=== PATIENT | male | born 1960 | race Caucasian/White ===

== ENCOUNTER 2018-05-07 17:19 | Inpatient (IN) | payer BC ==
[2018-05-07] MEDS ORDERED: SODIUM CHLORIDE 0.9% 1,000 ML IV STA (17:38)
--- NOTE | 2018-05-07 17:53 | ED ---
General Adult HPI - General Chief complaint: Abdominal Pain Stated complaint: abdominal pain/bloating Time Seen by Provider: 05/07/18 17:30 Source: patient, RN notes reviewed Mode of arrival: ambulatory Limitations: no limitations - History of Present Illness Initial comments: 57-year-old male since to the emergency department for a chief complaint of right lower quadrant pain times one day. Patient states this pain started us morning. He states it is in his lower abdomen worse in the right lower quadrant. Patient states he is concerned for an appendicitis. He denies fevers or chills. He admits to some episodes of nausea but denies any vomiting. Patient has not had any abdominal surgeries besides on the left ureter when he was 13 years old. He states he had a normal bowel movement this morning as well as yesterday. He denies any dysuria. Patient has no other complaints at this time including shortness of breath, chest pain, headache, or visual changes. - Related Data Home Medications Medication Instructions Recorded Confirmed Aspirin EC [Ecotrin Low Dose] 81 mg PO DAILY 05/07/18 05/07/18 Atorvastatin [Lipitor] 20 mg PO DAILY 05/07/18 05/07/18 Fenofibrate [Lofibra] 160 mg PO DAILY 05/07/18 05/07/18 Lisinopril-Hctz 20-25 mg 2 tab PO DAILY 05/07/18 05/07/18 [Zestoretic 20-25] Metoprolol Tartrate [Lopressor] 100 mg PO DAILY 05/07/18 05/07/18 Multivitamin,Therapeutic [Thera] 1 tab PO DAILY 05/07/18 05/07/18 PARoxetine [Paxil] 20 mg PO DAILY 05/07/18 05/07/18 Potassium 99 mg PO DAILY 05/07/18 05/07/18 Saw [place] 500 mg PO DAILY 05/07/18 05/07/18 Triamcinolone Acetonide 1 applic TOPICAL TID PRN 05/07/18 05/07/18 [Triamcinolone Acetonide 0.025%] amLODIPine [Norvasc] 10 mg PO DAILY 05/07/18 05/07/18 Allergies Allergy/AdvReac Type Severity Reaction Status Date / Time adhesive AdvReac Unknown Verified 05/07/18 17:53 Review of Systems ROS Statement: Those systems with pertinent positive or pertinent negative responses have been documented in the HPI. ROS Other: All systems not noted in ROS Statement are negative. Past Medical History Past Medical History: Cancer, Hyperlipidemia, Hypertension Additional Past Medical History / Comment(s): skin cancer History of Any Multi-Drug Resistant Organisms: None Reported Additional Past Surgical History / Comment(s): ureter surgery Past Psychological History: No Psychological Hx Reported Smoking Status: Never smoker Past Alcohol Use History: Daily Past Drug Use History: None Reported General Exam Limitations: no limitations General appearance: alert, in no apparent distress Head exam: Present: atraumatic, normocephalic, normal inspection Eye exam: Present: normal appearance, PERRL, EOMI. Absent: scleral icterus, conjunctival injection, periorbital swelling ENT exam: Present: normal exam, mucous membranes moist Neck exam: Present: normal inspection, full ROM. Absent: tenderness, meningismus, lymphadenopathy Respiratory exam: Present: normal lung sounds bilaterally. Absent: respiratory distress, wheezes, rales, rhonchi, stridor Cardiovascular Exam: Present: regular rate, normal rhythm, normal heart sounds. Absent: systolic murmur, diastolic murmur, rubs, gallop, clicks GI/Abdominal exam: Present: soft, tenderness (Tenderness with guarding in the right lower quadrant, no tenderness elsewhere in the abdomen.), normal bowel sounds. Absent: distended, guarding, rebound, rigid Neurological exam: Present: alert, oriented X3, CN II-XII intact Psychiatric exam: Present: normal affect, normal mood Course Vital Signs 05/07/18 05/07/18 17:25 19:07 Temperature 98.2 F Pulse Rate 88 78 Respiratory 18 18 Rate Blood Pressure 158/90 141/82 O2 Sat by Pulse 99 100 Oximetry Medical Decision Making - Medical Decision Making 57-year-old male with a past medical history of skin cancer, hypertension, hyperlipidemia presents to the emergency department for right lower quadrant pain times one day. Denies fevers or chills. Does admit to nausea denies any vomiting. Patient refused pain medication and anti-emetics. On exam patient does have right lower quadrant tenderness, McBurney point tenderness, positive obturator sign. No rebound tenderness present. Negative Rovsing sign. Patient does have leukocytosis of 14.8 with left shift. CMP unremarkable. Creatinine slightly elevated at 1.28, given a liter of fluids. CT showed a thickened appendix with surrounding inflammatory changes related to acute appendicitis, no abscess. Dr Gonzalez spoke with Dr. Jose who accepts admission and recommends nothing by mouth after midnight. Patient will be started on Zosyn. - Lab Data Result diagrams: 05/07/18 18:22 05/07/18 18:22 Lab Results 05/07/18 05/07/18 05/07/18 Range/Units 18:22 18:22 18:45 WBC 14.8 H (3.8-10.6) k/uL RBC 4.53 (4.30-5.90) m/uL Hgb 14.5 (13.0-17.5) gm/dL Hct 42.4 (39.0-53.0) % MCV 93.5 (80.0-100.0) fL MCH 32.1 (25.0-35.0) pg MCHC 34.3 (31.0-37.0) g/dL RDW 13.4 (11.5-15.5) % Plt Count 308 (150-450) k/uL Neutrophils % 84 % Lymphocytes % 9 % Monocytes % 5 % Eosinophils % 1 % Basophils % 0 % Neutrophils # 12.5 H (1.3-7.7) k/uL Lymphocytes # 1.3 (1.0-4.8) k/uL Monocytes # 0.8 (0-1.0) k/uL Eosinophils # 0.1 (0-0.7) k/uL Basophils # 0.0 (0-0.2) k/uL Sodium 136 L (137-145) mmol/L Potassium 3.5 (3.5-5.1) mmol/L Chloride 98 (98-107) mmol/L Carbon Dioxide 24 (22-30) mmol/L Anion Gap 14 mmol/L BUN 20 (9-20) mg/dL Creatinine 1.28 H (0.66-1.25) mg/dL Est GFR (CKD-EPI)AfAm 70 (>60 ml/min/1.73 sqM) Est GFR (CKD-EPI)NonAf 61 (>60 ml/min/1.73 sqM) Glucose 133 H (74-99) mg/dL Calcium 10.0 (8.4-10.2) mg/dL Total Bilirubin 1.1 (0.2-1.3) mg/dL AST 38 (17-59) U/L ALT 38 (21-72) U/L Alkaline Phosphatase 34 L (38-126) U/L Total Protein 7.6 (6.3-8.2) g/dL Albumin 5.0 (3.5-5.0) g/dL Amylase 59 (30-110) U/L Lipase 162 (23-300) U/L Urine Color Yellow Urine Appearance Clear (Clear) Urine pH 6.5 (5.0-8.0) Ur Specific [place] 1.021 (1.001-1.035) Urine Protein Trace H (Negative) Urine Glucose (UA) Negative (Negative) Urine Ketones Trace H (Negative) Urine Blood Negative (Negative) Urine Nitrite Negative (Negative) Urine Bilirubin Negative (Negative) Urine Urobilinogen <2.0 (<2.0) mg/dL Ur Leukocyte Esterase Negative (Negative) Disposition Clinical Impression: Appendicitis, acute Disposition: ADMITTED IP TO THIS [facility] Condition: Good Referrals: Domingo Ward DO [Primary Care Provider] - 1-2 days Time of Disposition: 19:33
[2018-05-07 18:46] LABS: Basophils % (A) 0 %; Eosinophils # (A) 0.1 k/uL (0-0.7); Eosinophils % (A) 1 %; HCT 42.4 % (39.0-53.0); HGB 14.5 gm/dL (13.0-17.5); Lymphocytes # (A) 1.3 k/uL (1.0-4.8); Lymphocytes % (A) 9 %; MCH 32.1 pg (25.0-35.0); MCHC 34.3 g/dL (31.0-37.0); MCV 93.5 fL (80.0-100.0); Mean Platelet Volume 6.9; Monocytes # (A) 0.8 k/uL (0-1.0); Monocytes % (A) 5 %; Neutrophils # (A) 12.5 k/uL (1.3-7.7); Neutrophils % (A) 84 %; Platelet Count 308 k/uL (150-450); RBC 4.53 m/uL (4.30-5.90); RDW 13.4 % (11.5-15.5); WBC 14.8 k/uL (3.8-10.6)
[2018-05-07 18:56] LABS: Appearance,Urine Clear (Clear); Bilirubin,Urine Negative (Negative); Blood,Urine Negative (Negative); Color,Urine Yellow; Glucose,Urine (UA) Negative (Negative); Ketones,Urine Trace (Negative); Leukocyte Esterase,Urine Negative (Negative); Nitrite,Urine Negative (Negative); PH, Urine 6.5 (5.0-8.0); Protein,Urine Trace (Negative); Specific Gravity,Urine 1.021 (1.001-1.035); Urobilinogen,Urine <2.0 mg/dL (<2.0)
[2018-05-07 18:57] LABS: Potassium 3.5 mmol/L (3.5-5.1); Total Bilirubin 1.1 mg/dL (0.2-1.3); Total Protein 7.6 g/dL (6.3-8.2)
--- NOTE | 2018-05-07 19:10 | CT ---
EXAMINATION TYPE: CT abdomen pelvis w con DATE OF EXAM: 05/07/2018 COMPARISON: None HISTORY: Lower abdominal pain and nausea today. CT DLP: 1435.7 mGycm Automated exposure control for dose reduction was used. TECHNIQUE: Helical acquisition of images was performed from the lung bases through the pelvis. CONTRAST: Performed without Oral Contrast and with IV Contrast, patient injected with 100ml mL of Isovue 300. FINDINGS: Lung bases are clear. There is no pleural effusion. Heart size is normal. There is no pericardial eff usion. Liver spleen pancreas gallbladder appear normal. Bile ducts are not dilated. Stomach appears normal. There is no adrenal mass. Kidneys show satisfactory contrast opacification. There is no hydronephrosis. Ureters are not dilated . There is no retroperitoneal adenopathy. Bladder distends smoothly. There is no free fluid in the pelvis. There is fat stranding around the appendix which is mildly dilated. Appendix measures up to 12 mm. Th ere are colonic diverticula without evidence of diverticulitis. There is no evidence of free air. There is no ascites. I see no bony destructive process. Lumbar spine is intact. IMPRESSION: THICKENED APPENDIX WITH SURROUNDING INFLAMMATORY CHANGES RELATED TO ACUTE APPENDICITIS. NO ABSCESS.
[2018-05-07] MEDS ORDERED: ONDANSETRON 4 MG/2 ML VIAL IVP PRN (19:26)
[2018-05-07] MEDS ORDERED: NALOXONE 0.4 MG/ML 1 ML VIAL IV PRN (19:26)
[2018-05-07] MEDS: MORPHINE SULFATE 4 MG/ML SYRINGE IV PRN (20:28)
[2018-05-07 21:44] VITALS: BMI 33.5
[2018-05-07] MEDS: PIPERACILLIN-TAZOBACTAM 3.375 GM in SODIUM CHLORIDE 0.9% 100 ML IVPB SCH (21:53)
[2018-05-07] MEDS: SODIUM CHLORIDE 0.9% 1,000 ML IV SCH (21:54)
[2018-05-07] MEDS ORDERED: Potassium Replacement Protocol 1 EACH MISC MISCELLANE PRN (22:17)
[2018-05-07] MEDS: ACETAMINOPHEN TAB 325 MG TAB PO PRN (22:42)
[2018-05-07] MEDS: POTASSIUM CHLORIDE ER 20 MEQ TAB.ER PO SCH ×2 (22:42→23:56)
[2018-05-08] MEDS: MORPHINE SULFATE 4 MG/ML SYRINGE IV PRN (03:12)
[2018-05-08] MEDS: PIPERACILLIN-TAZOBACTAM 3.375 GM in SODIUM CHLORIDE 0.9% 100 ML IVPB SCH ×3 (04:00→21:23)
[2018-05-08] MEDS: SODIUM CHLORIDE 0.9% 1,000 ML IV SCH ×2 (04:14→21:00)
[2018-05-08] MEDS: ACETAMINOPHEN TAB 325 MG TAB PO PRN ×2 (06:06→22:36)
[2018-05-08] MEDS: LACTATED RINGERS 1,000 ML IV SCH (06:08)
[2018-05-08] MEDS ORDERED: METOPROLOL TARTRATE 50 MG TAB PO SCH (09:00)
[2018-05-08] MEDS ORDERED: KETOROLAC 30 MG/ML 1 ML VIAL IVP SCH ×2 (10:00→12:15)
[2018-05-08] MEDS ORDERED: IV FLUID CONTINUATION 800 ML IV ONE (10:10)
--- NOTE | 2018-05-08 11:12 | P.GSHP ---
History of Present Illness H&P Date: 05/08/18 Chief Complaint: Right lower quadrant pain This is a 57-year-old male who was admitted through emergency room complaints of right lower quadrant pain. Patient's workup found evidence appendicitis. He 's been admitted for laparoscopic appendectomy. Past Medical History Past Medical History: Cancer, Hyperlipidemia, Hypertension Additional Past Medical History / Comment(s): skin cancer History of Any Multi-Drug Resistant Organisms: None Reported Additional Past Surgical History / Comment(s): ureter surgery Past Anesthesia/Blood Transfusion Reactions: No Reported Reaction Past Psychological History: No Psychological Hx Reported Smoking Status: Never smoker Past Alcohol Use History: Daily Past Drug Use History: None Reported - Past Family History Brother(s) Family Medical History: Myocardial Infarction ([place]) Father Family Medical History: Cancer Medications and Allergies Home Medications Medication Instructions Recorded Confirmed Type Aspirin EC [Ecotrin Low Dose] 81 mg PO DAILY 05/07/18 05/07/18 History Atorvastatin [Lipitor] 20 mg PO DAILY 05/07/18 05/07/18 History Fenofibrate [Lofibra] 160 mg PO DAILY 05/07/18 05/07/18 History Lisinopril-Hctz 20-25 mg 2 tab PO DAILY 05/07/18 05/07/18 History [Zestoretic 20-25] Metoprolol Tartrate [Lopressor] 100 mg PO DAILY 05/07/18 05/07/18 History Multivitamin,Therapeutic [Thera] 1 tab PO DAILY 05/07/18 05/07/18 History PARoxetine [Paxil] 20 mg PO DAILY 05/07/18 05/07/18 History Potassium 99 mg PO DAILY 05/07/18 05/07/18 History Saw [place] 500 mg PO DAILY 05/07/18 05/07/18 History Triamcinolone Acetonide 1 applic TOPICAL TID PRN 05/07/18 05/07/18 History [Triamcinolone Acetonide 0.025%] amLODIPine [Norvasc] 10 mg PO DAILY 05/07/18 05/07/18 History Allergies Allergy/AdvReac Type Severity Reaction Status Date / Time Latex, Natural Rubber Allergy Itching Verified 05/08/18 10:36 adhesive AdvReac Unknown Verified 05/07/18 17:53 Surgical - Exam Vital Signs Temp Pulse Resp BP Pulse Ox 98.2 F 88 18 158/90 99 01/06/19 17:25 05/07/18 17:25 05/07/18 17:25 05/07/18 17:25 05/07/18 17:25 - General well developed, no distress - Eyes PERRL - ENT normal pinna - Neck no masses - Respiratory normal expansion - Cardiovascular Rhythm: regular - Abdomen Mild right lower quadrant tenderness Abdomen: soft Results - Labs 05/07/18 18:22 05/07/18 18:22 Abnormal Lab Results - Last 24 Hours (Table) 05/07/18 05/07/18 05/07/18 Range/Units 18:22 18:22 18:45 WBC 14.8 H (3.8-10.6) k/uL Neutrophils # 12.5 H (1.3-7.7) k/uL Sodium 136 L (137-145) mmol/L Creatinine 1.28 H (0.66-1.25) mg/dL Glucose 133 H (74-99) mg/dL Alkaline Phosphatase 34 L (38-126) U/L Urine Protein Trace H (Negative) Urine Ketones Trace H (Negative) Diabetes panel 05/07/18 Range/Units 18:22 Sodium 136 L (137-145) mmol/L Potassium 3.5 (3.5-5.1) mmol/L Chloride 98 (98-107) mmol/L Carbon Dioxide 24 (22-30) mmol/L BUN 20 (9-20) mg/dL Creatinine 1.28 H (0.66-1.25) mg/dL Glucose 133 H (74-99) mg/dL Calcium 10.0 (8.4-10.2) mg/dL AST 38 (17-59) U/L ALT 38 (21-72) U/L Alkaline Phosphatase 34 L (38-126) U/L Total Protein 7.6 (6.3-8.2) g/dL Albumin 5.0 (3.5-5.0) g/dL Calcium panel 05/07/18 Range/Units 18:22 Calcium 10.0 (8.4-10.2) mg/dL Albumin 5.0 (3.5-5.0) g/dL Pituitary panel 05/07/18 Range/Units 18:22 Sodium 136 L (137-145) mmol/L Potassium 3.5 (3.5-5.1) mmol/L Chloride 98 (98-107) mmol/L Carbon Dioxide 24 (22-30) mmol/L BUN 20 (9-20) mg/dL Creatinine 1.28 H (0.66-1.25) mg/dL Glucose 133 H (74-99) mg/dL Calcium 10.0 (8.4-10.2) mg/dL Adrenal panel 05/07/18 Range/Units 18:22 Sodium 136 L (137-145) mmol/L Potassium 3.5 (3.5-5.1) mmol/L Chloride 98 (98-107) mmol/L Carbon Dioxide 24 (22-30) mmol/L BUN 20 (9-20) mg/dL Creatinine 1.28 H (0.66-1.25) mg/dL Glucose 133 H (74-99) mg/dL Calcium 10.0 (8.4-10.2) mg/dL Total Bilirubin 1.1 (0.2-1.3) mg/dL AST 38 (17-59) U/L ALT 38 (21-72) U/L Alkaline Phosphatase 34 L (38-126) U/L Total Protein 7.6 (6.3-8.2) g/dL Albumin 5.0 (3.5-5.0) g/dL - Imaging CT scan - abdomen: report reviewed (Thickening appendix suggestive of acute appendicitis) Assessment and Plan Assessment: Hematemesis. We'll perform laparoscopic appendectomy.
[2018-05-08] MEDS ORDERED: LIDOCAINE 1% INJ 10MG/ML (20 ML MDV) ONE (11:19)
[2018-05-08] MEDS ORDERED: fentaNYL (PF) 50 MCG/ML 2 ML AMP ONE (11:19)
[2018-05-08] MEDS ORDERED: MIDAZOLAM 2 MG/2 ML VIAL ONE (11:19)
[2018-05-08] MEDS ORDERED: ROCURONIUM BROMIDE 10 MG/ML 10 ML VIAL IV ONE (11:19)
[2018-05-08] MEDS ORDERED: NEOSTIGMINE 1 MG/ML 10 ML VIAL ONE (11:19)
[2018-05-08] MEDS ORDERED: PROPOFOL 10 MG/ML 20 ML VIAL IV ONE (11:19)
[2018-05-08] MEDS ORDERED: GLYCOPYRROLATE 0.2 MG/ML 2 ML VIAL ONE (11:19)
[2018-05-08] MEDS ORDERED: ePHEDrine SULFATE/0.9% NACL/PF 50 MG/5 ML SYRINGE IV ONE (11:19)
[2018-05-08] MEDS ORDERED: BUPIVACAIN-EPI 0.25%-1:200,000 30 ML VIAL SQ ONE (11:42)
[2018-05-08] MEDS ORDERED: HYDROcodone/APAP 5-325MG 1 EACH TAB PO PRN (12:04)
[2018-05-08] MEDS ORDERED: NALOXONE 0.4 MG/ML 1 ML VIAL IV PRN (12:04)
[2018-05-08] MEDS ORDERED: METOCLOPRAMIDE 5 MG/ML 2 ML VIAL IVP PRN (12:04)
[2018-05-08] MEDS ORDERED: LACTATED RINGERS 1,000 ML IV ONE (12:04)
[2018-05-08] MEDS ORDERED: traMADol 50 MG TAB PO PRN (12:04)
--- NOTE | 2018-05-08 12:04 | P.OP ---
Date of Procedure: 05/08/18 Preoperative Diagnosis: Acute appendicitis Postoperative Diagnosis: Acute appendicitis Procedure(s) Performed: Laparoscopic appendectomy Anesthesia: ANGEL Surgeon: Kurt Jose Estimated Blood Loss (ml): 5 Pathology: other (Appendix) Condition: stable Disposition: PACU Description of Procedure: The patient's placed on the operating table in the supine position. The patient received general anesthesia. The abdomen was prepped and draped in the usual sterile fashion. The skin was anesthetized 1% local Xylocaine at the trocar sites. Using an 11 blade the skin was incised at the umbilicus. The umbilicus was grasped with a [place] clamp and then a Veress needle was placed into the peritoneal cavity. Position of the Veress needle was confirmed with positive drop test. After adequate insufflation a 5 mm trocar was placed into the peritoneal cavity. The abdomen was further insufflated. And then the laparoscope was placed in the peritoneal cavity. Next a 5 mm trocar was placed in the midline suprapubic position. And then a 10 mm trocar was placed in the midline epigastric position. The patient was rotated with the right side up and in Trendelenburg. The appendix was visualized. The appendix appeared to be inflamed and dilated.. The appendix was grasped and then using the Harmonic scissors the mesoappendix was divided. A PDS Endoloop was then placed around the base of the appendix. And then the appendix was divided using Harmonic scissors. The appendix was placed into an Endo Catch and brought out through the 10 mm trocar site. The abdomen was irrigated. There is no bleeding seen. The trochars withdrawn. The skin was closed interrupted 3-0 Monocryl suture. Dermabond dressing was applied. Patient was sent to recovery room in stable condition.
[2018-05-08] MEDS ORDERED: SODIUM CHLORIDE 0.9% 1,000 ML IV ONE ×2 (12:32)
[2018-05-08] MEDS: ASPIRIN 81 MG PO SCH (12:48)
[2018-05-08] MEDS: FENOFIBRATE 160 MG TAB PO SCH (12:49)
[2018-05-08] MEDS: PARoxetine 20 MG TAB PO SCH (12:49)
[2018-05-08] MEDS: MULTIVITAMINS, THERA 1 EACH TAB PO SCH (12:49)
[2018-05-08] MEDS: ATORVASTATIN 20 MG TAB PO SCH (12:49)
--- NOTE | 2018-05-08 17:28 | P.CONS ---
History of Present Illness - Reason for Consult Possible acute renal failure - History of Present Illness Patient came in with the right lower quadrant abdominal pain and was found to have appendicitis patient was taken to our tenderness postoperatively after the appendectomy for acute appendicitis patient. Patient is presently on Zosyn. Patient does have history of hypertension patient denied any previous history of acute renal failure patient's creatinine is 1.28 patient on IV fluids with repeat basic metabolic profile tomorrow. Patient has good urine output patient the blood pressure is low normal at this time which is expected in perioperative. Patient takes lisinopril and amlodipine at home Zuri lisinopril will be held and if his blood pressure is okay patient will restart back on low- dose of amlodipine tomorrow morning patient also takes Lopressor at home. Denied any fever chills. Patient does have leukocytosis presently denied any nausea vomiting. Review of Systems REVIEW OF SYSTEMS: CONSTITUTIONAL: No fever, no malaise, no fatigue. HEENT: No recent visual problems or hearing problems. Denied any sore throat. CARDIOVASCULAR: No chest pain, orthopnea, PND, no palpitations, no syncope. PULMONARY: No shortness of breath, no cough, no hemoptysis. GASTROINTESTINAL: No diarrhea, no nausea, no vomiting, NEUROLOGICAL: No headaches, no weakness, no numbness. HEMATOLOGICAL: Denies any bleeding or petechiae. GENITOURINARY: Denies any burning micturition, frequency, or urgency. MUSCULOSKELETAL/RHEUMATOLOGICAL: Denies any joint pain, swelling, or any muscle pain. ENDOCRINE: Denies any polyuria or polydipsia. The rest of the 14-point review of systems is negative. Past Medical History Past Medical History: Cancer, Hyperlipidemia, Hypertension Additional Past Medical History / Comment(s): skin cancer History of Any Multi-Drug Resistant Organisms: None Reported Additional Past Surgical History / Comment(s): ureter surgery Past Anesthesia/Blood Transfusion Reactions: No Reported Reaction Past Psychological History: No Psychological Hx Reported Smoking Status: Never smoker Past Alcohol Use History: Daily Past Drug Use History: None Reported - Past Family History Brother(s) Family Medical History: Myocardial Infarction ([place]) Father Family Medical History: Cancer Medications and Allergies Home Medications Medication Instructions Recorded Confirmed Type Aspirin EC [Ecotrin Low Dose] 81 mg PO DAILY 05/07/18 05/07/18 History Atorvastatin [Lipitor] 20 mg PO DAILY 05/07/18 05/07/18 History Fenofibrate [Lofibra] 160 mg PO DAILY 05/07/18 05/07/18 History Lisinopril-Hctz 20-25 mg 2 tab PO DAILY 05/07/18 05/07/18 History [Zestoretic 20-25] Metoprolol Tartrate [Lopressor] 100 mg PO DAILY 05/07/18 05/07/18 History Multivitamin,Therapeutic [Thera] 1 tab PO DAILY 05/07/18 05/07/18 History PARoxetine [Paxil] 20 mg PO DAILY 05/07/18 05/07/18 History Potassium 99 mg PO DAILY 05/07/18 05/07/18 History Saw [place] 500 mg PO DAILY 05/07/18 05/07/18 History Triamcinolone Acetonide 1 applic TOPICAL TID PRN 05/07/18 05/07/18 History [Triamcinolone Acetonide 0.025%] amLODIPine [Norvasc] 10 mg PO DAILY 05/07/18 05/07/18 History Allergies Allergy/AdvReac Type Severity Reaction Status Date / Time Latex, Natural Rubber Allergy Itching Verified 05/08/18 10:36 adhesive AdvReac Unknown Verified 05/07/18 17:53 Physical Exam Vitals: Vital Signs Temp Pulse Pulse Pulse Resp BP BP 05/08/18 15:45 78 16 124/72 05/08/18 15:30 81 16 131/79 05/08/18 15:15 82 16 133/81 05/08/18 15:00 82 16 135/72 05/08/18 14:45 79 16 132/77 05/08/18 14:30 71 16 132/83 05/08/18 14:15 71 16 131/80 05/08/18 14:00 76 16 112/73 05/08/18 13:45 98.2 F 67 16 104/65 05/08/18 13:05 73 16 106/58 05/08/18 12:50 72 16 105/62 05/08/18 12:35 75 18 115/70 05/08/18 12:20 74 16 120/68 05/08/18 12:07 97.0 F L 89 16 115/67 05/08/18 10:33 98.7 F 87 109/61 05/08/18 07:51 99.2 F 88 14 108/70 05/08/18 07:32 103 H 05/08/18 07:00 98.4 F 88 16 126/77 05/08/18 06:32 99 126/77 05/08/18 06:03 107 H 174/99 05/08/18 06:02 99.3 F 109 H 18 184/89 05/08/18 00:34 98.7 F 83 16 109/64 05/07/18 22:12 99.3 F 05/07/18 21:30 100.7 F H 78 92 18 143/79 168/83 05/07/18 20:00 77 20 163/86 05/07/18 19:07 78 18 141/82 05/07/18 17:25 98.2 F 88 18 158/90 Pulse Ox 05/08/18 15:45 94 L 05/08/18 15:30 95 05/08/18 15:15 96 05/08/18 15:00 95 05/08/18 14:45 97 05/08/18 14:30 96 05/08/18 14:15 97 05/08/18 14:00 95 05/08/18 13:45 94 L 05/08/18 13:05 95 05/08/18 12:50 94 L 05/08/18 12:35 95 05/08/18 12:20 96 05/08/18 12:07 90 L 05/08/18 10:33 95 05/08/18 07:51 96 05/08/18 07:32 05/08/18 07:00 98 05/08/18 06:32 98 05/08/18 06:03 95 05/08/18 06:02 95 05/08/18 00:34 94 L 05/07/18 22:12 05/07/18 21:30 97 05/07/18 20:00 97 05/07/18 19:07 100 05/07/18 17:25 99 Intake and Output 05/08/18 05/08/18 05/08/18 06:59 14:59 22:59 Intake Total 1500 900 500 Output Total 500 5 Balance 1000 895 500 Intake: IV 900 Intake, IV Titration 1200 Amount Sodium Chloride 0.9% 1, 1200 000 ml @ 120 mls/hr IV . Q8H20M [facility] Rx#:[id number] Oral 300 500 Output: Stool 500 Estimated Blood Loss 5 Other: # Voids 1 PHYSICAL EXAMINATION: GENERAL: The patient is alert and oriented x3, not in any acute distress. Obese HEENT: Pupils are round and equally reacting to light. EOMI. No scleral icterus. No conjunctival pallor. Normocephalic, atraumatic. No pharyngeal erythema. No thyromegaly. CARDIOVASCULAR: S1 and S2 present. No murmurs, rubs, or gallops. PULMONARY: Chest is clear to auscultation, no wheezing or crackles. ABDOMEN: Surgical site area clean sluggish bowel sounds MUSCULOSKELETAL: No joint swelling or deformity. EXTREMITIES: No cyanosis, clubbing, or pedal edema. NEUROLOGICAL: Gross neurological examination did not reveal any focal deficits. SKIN: No rashes. Results CBC & Chem 7: 05/07/18 18:22 05/07/18 18:22 Labs: Abnormal Lab Results - Last 24 Hours (Table) 05/07/18 05/07/18 05/07/18 Range/Units 18:22 18:22 18:45 WBC 14.8 H (3.8-10.6) k/uL Neutrophils # 12.5 H (1.3-7.7) k/uL Sodium 136 L (137-145) mmol/L Creatinine 1.28 H (0.66-1.25) mg/dL Glucose 133 H (74-99) mg/dL Alkaline Phosphatase 34 L (38-126) U/L Urine Protein Trace H (Negative) Urine Ketones Trace H (Negative) Assessment and Plan Plan: -Acute appendicitis: Patient is status post appendectomy continue Zosyn IV fluids -Hypertension beta matthew will be continued hold off on amlodipine and lisinopril temporarily to prevent perioperative hypotension and also acute renal failure -Possible acute renal failure prerenal azotemia from acute appendicitis continue with IV fluids repeat basic metabolic profile tomorrow -Leukocytosis secondary to acute appendicitis -Depression resume his home medication -Hyperlipidemia -DVT prophylaxis and pain management as per primary service
[2018-05-08 19:39] LABS: Albumin 3.7 g/dL (3.5-5.0); Calcium 8.2 mg/dL (8.4-10.2); Potassium 3.2 mmol/L (3.5-5.1); Total Protein 5.8 g/dL (6.3-8.2)
[2018-05-08] MEDS ORDERED: amLODIPine 10 MG TAB PO SCH (21:00)
[2018-05-08] MEDS ORDERED: LISINOPRIL-HCTZ 20-25 MG 1 EACH TAB PO SCH (21:00)
[2018-05-08] MEDS: DOCUSATE 100 MG CAP PO SCH (21:10)
[2018-05-08] MEDS: METOPROLOL TARTRATE 50 MG TAB PO SCH (21:24)
[2018-05-08] MEDS: KETOROLAC 30 MG/ML 1 ML VIAL IVP SCH (22:36)
[2018-05-09] MEDS: SODIUM CHLORIDE 0.9% 1,000 ML IV SCH ×3 (02:06→16:56)
--- NOTE | 2018-05-09 03:59 | CONS ---
CONSULTATION DATE OF SERVICE: 05/08/2018 REASON FOR CONSULTATION: Acute appendicitis and antibiotic recommendation. HISTORY OF PRESENT ILLNESS: The patient is a 57-year-old male who started having abdominal pain yesterday morning. The patient's pain initially in the periumbilical area subsequently radiated to the right lower quadrant. The patient progressively get worse over the next 24 hours with intensity almost 10/10 and has been getting more sharp in nature with associated nausea but no vomiting. Denies having any constipation. He did have some chills. With these symptoms, the patient has been evaluated by the ER physician. On arrival to the ER, the patient did have a low-grade fever of 100.7. The patient did have elevated white count 14.8. A CT abdomen and pelvis has been suggestive of appendicitis. The patient was taken to the OR today and is status post laparoscopic appendectomy. Infectious Disease was consulted for further recommendation regarding antibiotic therapy. The patient did have a postop abdominal pain that seemed to have slightly improved from initial abdominal pain that he has slight nausea, no vomiting. Denies having any chest pain or shortness of breath. No cough and no diarrhea. REVIEW OF SYSTEMS: Positive points have been mentioned in HPI. Rest of the systems have been negative. MEDICAL HISTORY: History of hypertension, hyperlipidemia, skin cancer. SURGICAL HISTORY: Previous surgeries. SOCIAL HISTORY: Denies smoking, drink daily and no drug use. FAMILY HISTORY: No pertinent findings noticed. ALLERGIES: LATEX. MEDICATION: Medications include the patient is currently on Tylenol, [place], aspirin, Lipitor, Colace, Lovenox, Toradol, lactated Ringer's, Lopressor, multivitamin, Narcan, Zosyn 3.375 q.8 hours and Ultram. PHYSICAL EXAMINATION: Blood pressure 124/72 with a pulse of 73, temperature 98, T-max 100.7. He is 94% on room air. General description is a middle-aged male lying in bed in no distress. No tachypnea or accessory muscle of respiration use. HEENT: Shows no pallor or scleral icterus. Oral mucosa membranes are dry. No pharyngeal erythema or thrush. Neck: Trachea central. No thyromegaly. Lungs unlabored breathing. Clear to auscultation anteriorly. No wheeze or crackles. Heart S1, S2. Regular rate and rhythm. ABDOMEN: Soft, mild tenderness. No guarding or rigidity. No organomegaly. Extremities: No edema of the feet. Skin examination: No rash or mass palpable. Neurological: Patient is awake, alert, oriented times three. Mood and affect normal. LABS: BUN of 13, creatinine 1.42, hemoglobin 14.5, white count 14.8. CT report as mentioned above. DIAGNOSTIC IMPRESSION AND PLAN: Patient admitted to the hospital with sepsis. The patient did have fever of 100.7. The patient did have elevated white count at 14.8, meeting criteria for SIRS source is likely acute appendicitis with no evidence of any perforation. The patient has not been on antibiotic in the recent past, could be sensitive pathogen such as E coli and herrera. PLAN: 1. Zosyn 3.375 q8 hours. 2. IV fluids. 3. If the patient continues to improve, we should be able to switch him to oral antibiotic and close outpatient followup. Thank you for this consultation. We will follow this patient along with you. MMODL / IJN: [id number] /
[2018-05-09] MEDS: KETOROLAC 30 MG/ML 1 ML VIAL IVP SCH ×3 (05:05→16:56)
[2018-05-09] MEDS: PIPERACILLIN-TAZOBACTAM 3.375 GM in SODIUM CHLORIDE 0.9% 100 ML IVPB SCH ×3 (05:05→21:12)
[2018-05-09] MEDS: LACTATED RINGERS 1,000 ML IV SCH (05:32)
[2018-05-09] MEDS: PARoxetine 20 MG TAB PO SCH (08:27)
[2018-05-09] MEDS: FENOFIBRATE 160 MG TAB PO SCH (08:27)
[2018-05-09] MEDS: DOCUSATE 100 MG CAP PO SCH ×2 (08:27→21:12)
[2018-05-09] MEDS: ATORVASTATIN 20 MG TAB PO SCH (08:28)
[2018-05-09] MEDS: ASPIRIN 81 MG PO SCH (08:28)
[2018-05-09] MEDS: METOPROLOL TARTRATE 50 MG TAB PO SCH ×2 (08:28→21:12)
[2018-05-09] MEDS: ENOXAPARIN 40 MG/0.4 ML SYRINGE SQ SCH (08:29)
[2018-05-09] MEDS ORDERED: amLODIPine 5 MG TAB PO SCH (09:00)
[2018-05-09 09:18] LABS: Basophils % (A) 0 %; Eosinophils # (A) 0.1 k/uL (0-0.7); Eosinophils % (A) 1 %; HCT 34.7 % (39.0-53.0); HGB 11.8 gm/dL (13.0-17.5); Lymphocytes # (A) 1.6 k/uL (1.0-4.8); Lymphocytes % (A) 20 %; MCH 32.8 pg (25.0-35.0); MCV 96.7 fL (80.0-100.0); Mean Platelet Volume 6.9; Monocytes # (A) 0.4 k/uL (0-1.0); Monocytes % (A) 5 %; Neutrophils # (A) 5.7 k/uL (1.3-7.7); Neutrophils % (A) 71 %; Platelet Count 214 k/uL (150-450); RBC 3.59 m/uL (4.30-5.90)
[2018-05-09] MEDS: MULTIVITAMINS, THERA 1 EACH TAB PO SCH (11:04)
--- NOTE | 2018-05-09 13:51 | P.PN ---
Subjective Progress Note Date: 05/09/18 57-year-old male who underwent laparoscopic appendectomy on 2018. The patient was evaluated postoperatively. He is sitting up in the chair. Tolerating liquid diet. Denies BM. Reports passing a lot of flatus. He did spike a temp overnight. PHYSICAL EXAM: GENERAL: This is a 57-year-old male in no apparent distress at the time of examination. Pleasant and cooperative. HEENT: Head is atraumatic, normocephalic. Sclerae anicteric. Conjunctivae are clear. Mucus membranes of the mouth are moist. Neck is supple. RESPIRATORY: Clear to auscultation. No wheezes, rales, or rhonchi. No use of accessory muscles. Patient maintaining oxygen saturation greater than 92%. CARDIOVASCULAR: Regular rate and rhythm. S1 and S2 noted. No systolic or diastolic murmur auscultated. No JVD noted. No S3 or S4 noted. GASTROINTESTINAL: Surgical sites clean without signs of infection. No distention noted. Abdomen soft and round. Normal active bowel sounds auscultated x 4 quadrants. INTEGUMENTARY: No cyanosis. No jaundice. No rashes noted. No cellulitis noted. EXTREMITIES: 2+ peripheral pulses. No evidence of peripheral edema. NEUROLOGIC: Cranial nerves II-XII intact. PSYCHIATRIC: Awake, alert, and oriented X 3. Appropriate affect. ASSESSMENT: Acute appendicitis, status post laparoscopic appendectomy, POD #1 Leukocytosis History of hypertension History of hyperlipidemia Depression Obesity, BMI 33.5 PLAN: Advance diet. Incentive spirometry. Pain control. Continue antibiotics. Dr. Arreola would like patient to stay overnight for further IV antibiotics. Patient will be discharged home in the morning if he remains stable. Nurse practitioner note has been reviewed by physician. Signing provider agrees with the documented findings, assessment, and plan of care. Objective - Vital Signs Vital signs: Vital Signs Temp 98.5 F 05/09/18 08:33 Pulse 66 05/09/18 08:33 Resp 15 05/09/18 08:33 BP 112/60 05/09/18 08:33 Pulse Ox 96 05/09/18 08:33 Intake & Output 05/08/18 05/09/18 05/09/18 18:59 06:59 18:59 Intake Total 1400 2460 Output Total 5 300 Balance 1395 2160 Intake: IV 900 Intake, IV Titration 1500 Amount Lactated Ringers 1,000 ml 1500 @ 125 mls/hr IV .Q8H ONE Rx#:[id number] Oral 500 960 Output: Urine 300 Estimated Blood Loss 5 - Labs CBC & Chem 7: 05/09/18 08:22 05/09/18 08:22 Labs: Abnormal Lab Results - Last 24 Hours (Table) 05/08/18 05/09/18 Range/Units 19:12 08:22 RBC 3.59 L (4.30-5.90) m/uL Hgb 11.8 L (13.0-17.5) gm/dL Hct 34.7 L (39.0-53.0) % Sodium 133 L (137-145) mmol/L Potassium 3.2 L (3.5-5.1) mmol/L Creatinine 1.42 H (0.66-1.25) mg/dL Glucose 172 H (74-99) mg/dL Calcium 8.2 L (8.4-10.2) mg/dL Alkaline Phosphatase 27 L (38-126) U/L Total Protein 5.8 L (6.3-8.2) g/dL Microbiology - Last 24 Hours (Table) 05/07/18 20:27 Blood Culture - Preliminary Blood No Growth after 24 hours
--- NOTE | 2018-05-09 17:01 | P.PN ---
Subjective Patient is post appendectomy and clinically doing well did the pass gas did not move his bowel yet. Constitutional: Denied any fatigue denied any fever. Cardio vascular: denied any chest pain, palpitations Gastrointestinal denied any nausea vomiting Pulmonary: Denied any shortness of breath cough Neurologic denied any new focal deficits All inpatient medications were reviewed and appropriate changes in these medications as dictated in the interval history and assessment and plan. Objective - Vital Signs Vital signs: Vital Signs Temp 98.4 F 05/09/18 14:32 Pulse 65 05/09/18 14:32 Resp 16 05/09/18 14:32 BP 101/61 05/09/18 14:32 Pulse Ox 94 L 05/09/18 14:32 Intake & Output 05/08/18 05/09/18 05/09/18 18:59 06:59 18:59 Intake Total 1400 2460 Output Total 5 300 Balance 1395 2160 Intake: IV 900 Intake, IV Titration 1500 Amount Lactated Ringers 1,000 ml 1500 @ 125 mls/hr IV .Q8H ONE Rx#:[id number] Oral 500 960 Output: Urine 300 Estimated Blood Loss 5 - Exam PHYSICAL EXAMINATION: GENERAL: The patient is alert and oriented x3, not in any acute distress. Obese HEENT: Pupils are round and equally reacting to light. EOMI. No scleral icterus. No conjunctival pallor. Normocephalic, atraumatic. No pharyngeal erythema. No thyromegaly. CARDIOVASCULAR: S1 and S2 present. No murmurs, rubs, or gallops. PULMONARY: Chest is clear to auscultation, no wheezing or crackles. ABDOMEN: Surgical site area clean, good bowel sounds MUSCULOSKELETAL: No joint swelling or deformity. EXTREMITIES: No cyanosis, clubbing, or pedal edema. NEUROLOGICAL: Gross neurological examination did not reveal any focal deficits. SKIN: No rashes. - Labs CBC & Chem 7: 05/09/18 08:22 05/09/18 08:22 Labs: Abnormal Lab Results - Last 24 Hours (Table) 05/08/18 05/09/18 Range/Units 19:12 08:22 RBC 3.59 L (4.30-5.90) m/uL Hgb 11.8 L (13.0-17.5) gm/dL Hct 34.7 L (39.0-53.0) % Sodium 133 L (137-145) mmol/L Potassium 3.2 L (3.5-5.1) mmol/L Creatinine 1.42 H (0.66-1.25) mg/dL Glucose 172 H (74-99) mg/dL Calcium 8.2 L (8.4-10.2) mg/dL Alkaline Phosphatase 27 L (38-126) U/L Total Protein 5.8 L (6.3-8.2) g/dL Microbiology - Last 24 Hours (Table) 05/07/18 20:27 Blood Culture - Preliminary Blood No Growth after 24 hours Assessment and Plan Plan: -Acute appendicitis: Patient is status post appendectomy continue Zosyn IV fluids -Hypertension beta matthew will be continued hold off on amlodipine and lisinopril temporarily to prevent perioperative hypotension and also acute renal failure -Possible acute renal failure prerenal azotemia from acute appendicitis continue with IV fluids repeat basic metabolic profile tomorrow -Leukocytosis secondary to acute appendicitis -Depression resume his home medication -Hyperlipidemia -DVT prophylaxis and pain management as per primary service
--- NOTE | 2018-05-10 03:13 | PN ---
PROGRESS NOTE DATE OF SERVICE: 05/09/2018 REASON FOR FOLLOWUP: Acute appendicitis and postoperative fever. INTERVAL HISTORY: The patient did spike a fever of 102.4 degrees Fahrenheit last night. The patient is afebrile since then. The patient's abdominal pain is currently controlled. The patient denies having any chest pain or shortness of breath or cough. Passing gas. Did not have any bowel movement. PHYSICAL EXAMINATION: Blood pressure is 158/83 with a pulse of 69, temperature 98.5. He is 96% on room air. General description is a middle-aged male lying in bed in no distress. RESPIRATORY SYSTEM: Unlabored breathing. Clear to auscultation anteriorly. HEART: S1, S2. Regular rate and rhythm. ABDOMEN: Soft. No tenderness. LABS: Hemoglobin is 11.3, white count 8.0. Blood culture has been negative. DIAGNOSTIC IMPRESSION AND PLAN: Patient admitted to hospital with sepsis, source acute appendicitis, status post laparoscopic appendectomy. Did have a postoperative fever. If the patient remains afebrile, antibiotic can be transitioned over to Augmentin 875 b.i.d. for about a week with close outpatient followup. Plan of care discussed with the nurse practitioner for the surgical team. Continue supportive care. MMODL / IJN: [id number] /
[2018-05-10] MEDS: SODIUM CHLORIDE 0.9% 1,000 ML IV SCH ×2 (05:47→06:16)
[2018-05-10] MEDS: KETOROLAC 30 MG/ML 1 ML VIAL IVP SCH ×3 (05:49→09:55)
[2018-05-10] MEDS: PIPERACILLIN-TAZOBACTAM 3.375 GM in SODIUM CHLORIDE 0.9% 100 ML IVPB SCH (05:49)
[2018-05-10 07:22] VITALS: BP 134/74; PULSE 72; RESP 12; TEMP 98.8
[2018-05-10] MEDS: LACTATED RINGERS 1,000 ML IV SCH ×10 (07:22→08:37)
[2018-05-10] MEDS: ENOXAPARIN 40 MG/0.4 ML SYRINGE SQ SCH (09:54)
[2018-05-10] MEDS: DOCUSATE 100 MG CAP PO SCH (09:54)
[2018-05-10] MEDS: ATORVASTATIN 20 MG TAB PO SCH (09:54)
[2018-05-10] MEDS: ASPIRIN 81 MG PO SCH (09:54)
[2018-05-10] MEDS: FENOFIBRATE 160 MG TAB PO SCH (09:55)
[2018-05-10] MEDS: MULTIVITAMINS, THERA 1 EACH TAB PO SCH (09:55)
[2018-05-10] MEDS: METOPROLOL TARTRATE 50 MG TAB PO SCH (09:55)
[2018-05-10] MEDS: PARoxetine 20 MG TAB PO SCH (09:55)
--- NOTE | 2018-05-10 10:20 | CDI ---
Documentation Clarification Form Date: 05/10/2018 9:54:02 AM From: Janeth Pollard RN, CCDS Admit Date: 05/09/2018 3:13:00 PM Patient Name: Marck Casey Visit Number: [id number] Discharge Date: ATTENTION: The Clinical Documentation Specialists (CDI) and [facility] Coding Staff appreciate your assistance in clarifying documentation. Please respond to the clarification below the line at the bottom and electronically sign. The CDI & [facility] Coding staff will review the response and follow-up if needed. Please note: Queries are made part of the Legal Health Record. If you have any questions, please contact the author of this message via ITS. Dr. Kurt Jose The patient presented with the following: Complaint of right lower quadrant pain , with nausea but denies any vomiting. History/Risk Factors: Hypertension Clinical Indicators: On arrival to ER, the patient did have a low-grade fever of 100.[address] [place]: Thickened appendix with surrounding inflammatory changes related to acute appendicitis, no abscess. WBC WBC 14.8 Blood cultures: Pending Vitals signs on admission: 158/90 88 18 98.2, 168/83 92 16 100.7 Treatment: ID Consult: (Dr. Arreola): -05/09/18: Patient Admitted to hospital with Sepsis. The patient did have a fever of 100.7 and did have elevated white count at 14.8, meeting criteria for SIRS source is likely acute appendicitis with no evidence of any perforation, status post laparoscopic appendectomy. Patient did have a postoperative fever. Antibiotics: Zosyn IV IV Fluids Other: Laparoscopic Appendectomy In your professional opinion, please clarify if these findings signify one of the following conditions, whether the condition is POA, and cause, if known: Condition Sepsis present on admission due to appendicitis Sepsis ruled out Other, please specify Unable to determine SIRS Criteria (2 or more of the following may indicate SIRS): -Temperature < 96.8F (36C) or > 101.0F (38.3C) -Heart Rate > 90 bpm -Respiratory Rate > 20 breaths/min or PaCO2 < 32 mmHg -White Blood Cell Count > 12,000 or < 4,000 cells/mm3 or > 10% bands -Lactate >2.0 mmol/L (>4.0 is equivalent to septic shock) (Last Revision: July 2017) Sepsis present on admission due to appendicitis. Patient met SIRS criteria. MTDD
--- NOTE | 2018-05-10 16:07 | P.DS ---
Providers Date of admission: 05/09/18 15:13 Expected date of discharge: 05/10/18 Attending physician: Kurt Jose Consults: 05/08/18 12:04 Consult Physician Routine Consulting Provider: Giselle Tolentino Consult Reason/Comments: Medical management Do you want consulting provider notified?: Yes Consult Physician Routine Consulting Provider: Ruchi Arreola Consult Reason/Comments: Acute appendicitis Do you want consulting provider notified?: Yes Primary care physician: Domingo Ward DO Hospital Course: 57-year-old male who originally presented to the emergency room with a chief complaint of right lower quadrant pain. The patient was found to have appendicitis. He underwent laparoscopic appendectomy on 05/08/2018. The patient did well postoperatively without any immediate complications. He has been up ambulating independently. Tolerating oral diet. Denies nausea or vomiting. Patient reports bowel movement. Pain has been tolerable on oral medications. He is afebrile. Remains hemodynamic stable. He is deemed stable for discharge home today. He is to follow up with Dr. Jose in one week. Discharge diagnosis: Acute appendicitis, status post laparoscopic appendectomy Leukocytosis, meets criteria for SIRS secondary to above History of hypertension History of hyperlipidemia Depression Obesity, BMI 33.5 Nurse practitioner note has been reviewed by physician. Signing provider agrees with the documented findings, assessment, and plan of care. Patient Condition at Discharge: Stable Plan - Discharge Summary Discharge Rx Participant: No New Discharge Prescriptions: New Docusate [Colace] 100 mg PO BID #30 cap Amoxic-Pot Clav 875-125Mg [Augmentin 875-125] 1 tab PO Q12HR #14 tablet HYDROcodone/APAP 7.5-325MG [[place] 7.5-325] 1 tab PO Q4H PRN 3 Days #18 tab PRN Reason: Pain Continue amLODIPine [Norvasc] 10 mg PO DAILY Fenofibrate [Lofibra] 160 mg PO DAILY Atorvastatin [Lipitor] 20 mg PO DAILY PARoxetine [Paxil] 20 mg PO DAILY Metoprolol Tartrate [Lopressor] 100 mg PO DAILY Lisinopril-Hctz 20-25 mg [Zestoretic 20-25] 2 tab PO DAILY Triamcinolone Acetonide [Triamcinolone Acetonide 0.025%] 1 applic TOPICAL TID PRN PRN Reason: Skin Irritation Saw [place] 500 mg PO DAILY Multivitamin,Therapeutic [Thera] 1 tab PO DAILY Aspirin EC [Ecotrin Low Dose] 81 mg PO DAILY No Action Potassium 99 mg PO DAILY Discharge Medication List Aspirin EC [Ecotrin Low Dose] 81 mg PO DAILY 05/07/18 [History] Atorvastatin [Lipitor] 20 mg PO DAILY 05/07/18 [History] Fenofibrate [Lofibra] 160 mg PO DAILY 05/07/18 [History] Lisinopril-Hctz 20-25 mg [Zestoretic 20-25] 2 tab PO DAILY 05/07/18 [History] Metoprolol Tartrate [Lopressor] 100 mg PO DAILY 05/07/18 [History] Multivitamin,Therapeutic [Thera] 1 tab PO DAILY 05/07/18 [History] PARoxetine [Paxil] 20 mg PO DAILY 05/07/18 [History] Potassium 99 mg PO DAILY 05/07/18 [History] Saw [place] 500 mg PO DAILY 05/07/18 [History] Triamcinolone Acetonide [Triamcinolone Acetonide 0.025%] 1 applic TOPICAL TID PRN 05/07/18 [History] amLODIPine [Norvasc] 10 mg PO DAILY 05/07/18 [History] Amoxic-Pot Clav 875-125Mg [Augmentin 875-125] 1 tab PO Q12HR #14 tablet [Rx] Docusate [Colace] 100 mg PO BID #30 cap 05/09/18 [Rx] HYDROcodone/APAP 7.5-325MG [[place] 7.5-325] 1 tab PO Q4H PRN 3 Days #18 tab 05/09 [Rx] Follow up Appointment(s)/Referral(s): Domingo Ward DO [Primary Care Provider] - 05/15/18 2:30 pm Kurt Jose MD [STAFF PHYSICIAN] - 05/16/18 3:45 pm Patient Instructions/Handouts: Hydrocodone/Acetaminophen (By mouth), Amoxicillin/Clavulanate Potassium (By mouth), Laxative, Stool Softeners (By mouth), Laparoscopic Appendectomy (DC) Activity/Diet/Wound Care/Special Instructions: Take your blood pressure daily at home. If your blood pressure continues to run low, call your primary care physician No tub baths Shower daily No lifting over 10 [address] while taking [place] Discharge Disposition: HOME SELF-CARE
== END 2018-05-10 11:06 | disposition home or self-care (01) | DRG 854 ==
LOC: EC 17:19 → 4SSUR 19:34 → OBSVTOIN 05-09 15:13
PROVIDERS: ADMIT Surgery; ATTEND Surgery
PROC: 0DTJ4ZZ Resection of Appendix, Percutaneous Endoscopic Approach (ICD-10-PCS; principal; 2018-05-08 09:25)
DX: A41.9 Sepsis, unspecified organism (principal); K35.80 Unspecified acute appendicitis; N17.9 Acute kidney failure, unspecified; E66.9 Obesity, unspecified; Z68.33 Body mass index [BMI] 33.0-33.9, adult; E78.5 Hyperlipidemia, unspecified; F32.9 Major depressive disorder, single episode, unspecified; I10 Essential (primary) hypertension; R50.82 Postprocedural fever; Z79.82 Long term (current) use of aspirin; Z79.899 Other long term (current) drug therapy; Z82.49 Family history of ischemic heart disease and other diseases of the circulatory system; Z85.828 Personal history of other malignant neoplasm of skin; Z88.8 Allergy status to other drugs, medicaments and biological substances; Z91.040 Latex allergy status
CPT/HCPCS: 36415; 74177; 80053; 81003; 82150; 83690; 84132; 85025; 87040; 88304; 96361; 96374; 96375; 99285

== ENCOUNTER 2018-06-02 14:00 | Emergency (ER) | payer BC ==
[2018-06-02 14:15] VITALS: BP 123/78; PULSE 58; RESP 20; TEMP 97.8
--- NOTE | 2018-06-02 14:22 | ED ---
Fall HPI - General Chief Complaint: Fall Stated Complaint: Fall, hand injury Time Seen by Provider: 06/02/18 14:15 Source: patient, RN notes reviewed Mode of arrival: ambulatory Limitations: no limitations - History of Present Illness Initial Comments: 57-year-old male presents emergency Department chief complaint of left wrist pain. Patient states that he tripped over a snowbank today. Patient fell striking his left wrist and hand region. He denies any head injury no loss conscious. Patient states pain has increased throughout the day and noticed some bruising. Patient states he is concerned about possible fracture. Patient had no prior injuries. - Related Data Home Medications Medication Instructions Recorded Confirmed Aspirin EC [Ecotrin Low Dose] 81 mg PO DAILY 05/07/18 05/07/18 Atorvastatin [Lipitor] 20 mg PO DAILY 05/07/18 05/07/18 Fenofibrate [Lofibra] 160 mg PO DAILY 05/07/18 05/07/18 Lisinopril-Hctz 20-25 mg 2 tab PO DAILY 05/07/18 05/07/18 [Zestoretic 20-25] Metoprolol Tartrate [Lopressor] 100 mg PO DAILY 05/07/18 05/07/18 Multivitamin,Therapeutic [Thera] 1 tab PO DAILY 05/07/18 05/07/18 PARoxetine [Paxil] 20 mg PO DAILY 05/07/18 05/07/18 Potassium 99 mg PO DAILY 05/07/18 05/07/18 Saw [place] 500 mg PO DAILY 05/07/18 05/07/18 Triamcinolone Acetonide 1 applic TOPICAL TID PRN 05/07/18 05/07/18 [Triamcinolone Acetonide 0.025%] amLODIPine [Norvasc] 10 mg PO DAILY 05/07/18 05/07/18 Previous Rx's Medication Instructions Recorded Amoxic-Pot Clav 875-125Mg 1 tab PO Q12HR #14 tablet 05/09/18 [Augmentin 875-125] Docusate [Colace] 100 mg PO BID #30 cap 05/09/18 HYDROcodone/APAP 7.5-325MG [[place] 1 tab PO Q4H PRN 3 Days #18 tab 05/09/18 7.5-325] Allergies Allergy/AdvReac Type Severity Reaction Status Date / Time Latex, Natural Rubber Allergy Itching Verified 06/02/18 14:15 adhesive AdvReac Unknown Verified 06/02/18 14:15 Review of Systems ROS Statement: Those systems with pertinent positive or pertinent negative responses have been documented in the HPI. ROS Other: All systems not noted in ROS Statement are negative. Past Medical History Past Medical History: Cancer, Hyperlipidemia, Hypertension Additional Past Medical History / Comment(s): skin cancer History of Any Multi-Drug Resistant Organisms: None Reported Additional Past Surgical History / Comment(s): ureter surgery Past Anesthesia/Blood Transfusion Reactions: No Reported Reaction Past Psychological History: No Psychological Hx Reported Smoking Status: Never smoker Past Alcohol Use History: Daily Past Drug Use History: None Reported - Past Family History Brother(s) Family Medical History: Myocardial Infarction ([place]) Father Family Medical History: Cancer General Exam Limitations: no limitations General appearance: alert, in no apparent distress Head exam: Present: atraumatic, normocephalic, normal inspection Neck exam: Present: normal inspection. Absent: tenderness, meningismus, lymphadenopathy Respiratory exam: Present: normal lung sounds bilaterally. Absent: respiratory distress, wheezes, rales, rhonchi, stridor Cardiovascular Exam: Present: regular rate, normal rhythm, normal heart sounds. Absent: systolic murmur, diastolic murmur, rubs, gallop, clicks Extremities exam: Present: other (Left wrist there is some ecchymosis noted, neurovascular intact Refill less than 2 seconds mild discomfort with range of motion no proximal forearm tenderness no hand tenderness) Skin exam: Present: warm, dry, intact Course Vital Signs 06/02/18 14:12 Temperature 97.8 F Pulse Rate 58 L Respiratory 20 Rate Blood Pressure 123/78 O2 Sat by Pulse 98 Oximetry Medical Decision Making - Medical Decision Making 57-year-old male presented for left wrist injury x-rays were obtained no acute fracture as read by radiologist. Patient will be discharged return parameters were discussed. Disposition Clinical Impression: Fall, Left wrist sprain Disposition: HOME SELF-CARE Condition: Stable Instructions (If sedation given, give patient instructions): Wrist Sprain (ED) Additional Instructions: Please return to the Emergency Department if symptoms worsen or any other concerns. Is patient prescribed a controlled substance at d/c from ED?: No Referrals: Domingo Ward DO [Primary Care Provider] - 1-2 days Time of Disposition: 15:04
--- NOTE | 2018-06-02 14:58 | XR ---
EXAMINATION TYPE: XR wrist complete LT DATE OF EXAM: 06/02/2018 CLINICAL HISTORY: Pain after falling injury today. TECHNIQUE: Frontal, lateral, scaphoid, and oblique images of the left wrist are obtained. COMPARISON: None FINDINGS: There is no acute fracture/dislocation evident in the left wrist. Mild Radiocarpal joint s pace narrowing is present. The overlying soft tissue appears unremarkable. IMPRESSION: There is no acute fracture or dislocation in the left wrist.
== END 2018-06-02 15:12 | disposition home or self-care (01) ==
LOC: EC 14:00
DX: S63.502A Unspecified sprain of left wrist, initial encounter (principal); E78.5 Hyperlipidemia, unspecified; I10 Essential (primary) hypertension; Z91.040 Latex allergy status; Z91.09 Other allergy status, other than to drugs and biological substances; Z79.82 Long term (current) use of aspirin; Z79.899 Other long term (current) drug therapy; Z85.828 Personal history of other malignant neoplasm of skin; W00.0XXA Fall on same level due to ice and snow, initial encounter; Y92.89 Other specified places as the place of occurrence of the external cause
CPT/HCPCS: 99283